=== PATIENT | male | born 1990 | race Caucasian/White ===

== ENCOUNTER 2016-03-10 17:18 | Emergency (ER) | payer BC ==
[~2016-03-10] VITALS: Ht 175.3 cm; Wt 97.5 kg
[2016-03-10 17:28] VITALS: BP 147/90; PULSE 78; TEMP 37; O2SAT 98; Ht 175.3 cm; Wt 97.5 kg
--- NOTE | 2016-03-10 18:21 | EMERGENCY ROOM VISIT NOTE ---
ED Visit Note First contact with patient: 18:05 CHIEF COMPLAINT: knee pain HISTORY OF PRESENT ILLNESS: This 25-year-old male patient presents to the emergency department ambulatory after sustaining an injury to the right knee when he was skiing yesterday and fell but his ski did not come off the boot. The patient denies any other injuries besides their knee. The patient admits to swelling but no bruising. There is pain over the posterior aspect. They rate the pain as mild, worse with weight bearing and 2/10. The patient states they are able to walk on it with moderate difficulty. No numbness or tingling. No previous injuries to this knee. No ankle, foot or hip pain. REVIEW OF SYSTEMS: A 6 system review of systems was completed with positives and pertinent negatives listed in the HPI. ALLERGIES: No known allergies MEDICATIONS: None PMH: None SOCIAL HISTORY: The patient does not smoke. He lives locally PHYSICAL EXAM: Vital Signs: Reviewed Nurse's notes, vital signs stable. GENERAL : This is a 25-year-old male, no acute distress, but appears in pain, well- developed, well-nourished. MENTAL STATUS: Alert, oriented to person place and time, and cooperative. MUSCULOSKELETAL: The right knee is moderately swollen. There is no ecchymosis. There is large joint effusion present. The patient is tender over the posterior aspect. There is no joint line tenderness. The patella does not subluxate. Range of motion is intact. Strength of the quads and hamstrings is 5/5. Farida's is negative. Rosaura's and Anterior Drawer tests are negative for obvious laxity or pain. There is no obvious laxity or pain with varus and valgus stressing. The foot and toes are warm and well- perfused. Dorsalis pedis pulse 2+. Sensation to pain and light touch is intact. Capillary refill less than 2 seconds. EMERGENCY DEPARTMENT COURSE: I examined the patient. The patient declined pain medication X-rays of the right knee were reviewed by myself and read by radiology and reveal effusion but no fracture or dislocation. The patient was placed in a knee immobilizer under my direction and the position was satisfactory. The patient was instructed on the use of crutches. The patient was discharged home in good condition. ] RIGHT KNEE 3 VIEWS CLINICAL HISTORY: Right knee pain status post trauma COMPARISON: None. DISCUSSION: No acute fractures or dislocations are visualized. There is a suprapatellar joint effusion. IMPRESSION: 1. No acute fractures identified. 2. Joint effusion DISCHARGE INSTRUCTIONS: Ice and elevate knee for swelling and pain. Wear knee immobilizer when up and about. Use crutches - minimal weight on foot. Ibuprofen 600 mg every 6 hrs for pain. Follow-up with [facility] for further evaluation and treatment - call for appointment. Current/Historical Medications No Active Prescriptions or Reported Meds Allergies Coded Allergies: No Known Allergies (Unverified , 03/10/16) Vital Signs Date Time Temp Pulse Resp B/P Pulse Ox O2 Delivery O2 Flow Rate FiO2 03/10/16 17:28 37.0 78 18 147/90 98 Room Air Departure Information Impression Primary Impression: Knee effusion, right Additional Impression: Knee injury Dispostion Home / Self-Care Condition GOOD Prescriptions No Active Prescriptions or Reported Meds Referrals No Doctor, Assigned (PCP) Warner Olmedo MD Patient Instructions ED Effusion Knee, [facility] Additional Instructions Ice and elevate knee for swelling and pain. Wear knee immobilizer when up and about. Use crutches - minimal weight on foot. Ibuprofen 600 mg every 6 hrs for pain. Follow-up with [facility] for further evaluation and treatment - call for appointment. Problem Qualifiers Additional Impression: Knee injury Encounter type: initial encounter Laterality: right Qualified Codes: S89.91XA - Unspecified injury of right lower leg, initial encounter
--- NOTE | 2016-03-10 18:47 | DIAGNOSTIC IMAGING REPORT ---
RIGHT KNEE 3 VIEWS CLINICAL HISTORY: Right knee pain status post trauma COMPARISON: None. DISCUSSION: No acute fractures or dislocations are visualized. There is a suprapatellar joint effusion. IMPRESSION: 1. No acute fractures identified. 2. Joint effusion Electronically signed by: Skip Gamble M.D. 03/10/2016 6:45 PM Dictated Date/Time: 03/10/2016 6:45 PM
== END 2016-03-10 19:45 | disposition home or self-care (01) ==
LOC: C.EDB 17:19 → C.EDD 19:45
DX: M25.461 Effusion, right knee (principal); S89.91XA Unspecified injury of right lower leg, initial encounter; V00.321A Fall from snow-skis, initial encounter; Y93.23 Activity, snow (alpine) (downhill) skiing, snowboarding, sledding, tobogganing and snow tubing; Y99.8 Other external cause status